=== PATIENT | male | born 1995 | race Caucasian/White ===

== ENCOUNTER 2022-07-01 22:46 | Emergency (ER) | payer OTHER ==
[2022-07-02] MEDS ORDERED: Bacitracin 1 PK ONE (01:55)
[2022-07-02] MEDS ORDERED: Ketorolac Tromethamine 30 MG/ML VIAL ONE (02:10)
[2022-07-02] MEDS ORDERED: Boostrix 0.5 ML (Tdap) VIAL (>/=7 yrs of age) ONE (02:11)
[2022-07-02] MEDS ORDERED: CEFAZOLIN 1 GM VIAL ONE (02:11)
== END 2022-07-02 02:40 | disposition home or self-care (01) ==
LOC: CSHERS 22:46
DX: T21.13XA Burn of first degree of upper back, initial encounter (principal); T22.131A Burn of first degree of right upper arm, initial encounter; T31.0 Burns involving less than 10% of body surface; X10.2XXA Contact with fats and cooking oils, initial encounter
CPT/HCPCS: 90471; 90715; 96372; 99283; J0690; J1885

== ENCOUNTER 2022-07-03 17:17 | Emergency (ER) | payer SELFPAY | END 2022-07-03 18:40 | disposition home or self-care (01) | LOC: CSHERS 17:17 | DX: T22.051D Burn of unspecified degree of right shoulder, subsequent encounter (principal); T21.04XD Burn of unspecified degree of lower back, subsequent encounter | CPT/HCPCS: 99282 ==